=== PATIENT | female | born 1945 | race Caucasian/White ===

== ENCOUNTER → 2016-06-12 | Day surgery (SDC) | payer OTHER ==
[2016-06-04 11:35] VITALS: BMI 25.0
[~2016-06-12] VITALS: Ht 165.1 cm; Wt 70.5 kg
[~2016-06-12] MED LIST: AGG PO; CAPS0.1C6 TOP; CYM/30 PO; FLR/1 PO; KPP/1000 PO; LANS30CA12 PO; LEVO50TA6 PO; LIDOCAINE HCL 2% 2 ML VIAL (20MG/ML) ONE; MIDO5TAB PO; MULT-506 PO; ONDANSETRON INJ 2 MG/ML 2 ML VIAL IV PRN; PENT400T2 PO; PREG1CAP28 PO; PROPOFOL IV EMULSION 10 MG/ML 20 ML VIAL IV ONE; PRVC/40 PO; PSYL48.59 PO; [UNRECOGNIZED DRUG - CODE] PO
[2016-06-12 12:46] VITALS: Ht 165.1 cm; Wt 70.5 kg
--- NOTE | 2016-06-12 13:17 | Endo History and Physical ---
History & Physical Date of Service: Jun 12, 2016. Chief Complaint: Hx colon poylps Referring Physician: Dr. Chang History of Present Illness History of a serrated adenoma, for surveillance tolday. Past Surgical History Hx Cardiac Surgery: No Hx Internal Defibrillator: No Hx Pacemaker: No Hx Abdominal Surgery: Yes (APPY, COLON RESECTION, CURTIS) Hx of Implantable Prosthesis: No Hx Post-Op Nausea and Vomiting: No Hx Cancer Surgery: Yes (SKIN CANCER REMOVALS) Hx Thoracic Surgery: No Hx Orthopedic: No Hx Urinary Tract Surgery: No Family History None Social History Smoking Status: Never Smoker Hx Substance Use: No Hx Alcohol Use: No Allergies Coded Allergies: Atorvastatin (Verified Allergy, Unknown, ? UNSURE, 06/04/16) Carbamazepine (Verified Allergy, Unknown, CONFUSIONS, 06/04/16) Phenytoin (Verified Allergy, Unknown, RASH, 06/04/16) Uncoded Allergies: PEANUT PRODUCTS (Allergy, Unknown, TROUBLE BREATHING, 05/02/16) Current Medications Reported Home Medications Medications Dose Route/Sig Max Daily Dose Days Date Category Dose Instructions Capsaicin 0.1 % Cre 1 Appl TOP TID PRN 06/04/16 Reported Multivitamin (Multivitamins) Tab 1 Tab PO QPM 05/02/16 Reported Metamucil (Psyllium) 48.57 % Pow 1 Dose PO BID PRN 05/02/16 Reported Ixex-Y-Azbig 1000 (Vitamin E) 1,000 Unit Cap 1 Cap PO QAM 05/02/16 Reported Lyrica (Pregabalin) 75 Mg Cap 2 Cap PO BID 05/02/16 Reported Pravastatin Sodium (Pravastatin Sod) 40 Mg Tab 1 Tab PO HS 05/02/16 Reported Trental (Pentoxifylline) 400 Mg Tab 400 Mg PO TID 05/02/16 Reported Midodrine Hcl 5 Mg Tab 0.5 Tab PO TID 05/02/16 Reported Keppra (Levetiracetam) 1,000 Mg Tab 1.5 Tab PO BID 05/02/16 Reported Prevacid (Lansoprazole) 30 Mg Capcr 30 Mg PO QAM 05/02/16 Reported Florinef (Fludrocortisone Acetate) 0.1 Mg Tab 0.1 Mg PO QAM 05/02/16 Reported Cymbalta (Duloxetine HCl) 30 Mg Cap 1 Cap PO QAM 05/02/16 Reported Levothyroxine Sodium 50 Mcg Tab 1 Tab PO 6XWK 05/02/16 Reported DOES NOT TAKE MEDICATION ON SATURDAY Aggrenox 200MG/25MG (Aspirin-Dipyridamole 25MG/200MG) 1 Cap Cap 1 Cap PO BID 05/02/16 Reported Vital Signs Weight (Kilograms): 70.45 Height (Feet): 5 Height (Inches): 5 Date Time Temp Pulse Resp B/P Pulse Ox O2 Delivery O2 Flow Rate FiO2 06/12/16 13:08 36.4 75 20 106/53 97 Room Air Physical Exam General Appearance: no apparent distress Respiratory/Chest: Auscultation: deminished air movement Cardiovascular: Heart Auscultation: II/ WILVER Abdomen: Inspection & Palpation: soft Assessment and Plan Colonoscopy for evaluation of prior colonic polyps. Risks discussed to include bleeding, infection, perforation, pain, and missed lesions.
--- NOTE | 2016-06-12 13:47 | GI REPORT ---
Procedure Date: 06/12/2016 1:09 PM Procedure: Colonoscopy Indications: High risk colon cancer surveillance: Personal history of sessile serrated colon polyp (10 mm or greater in size) Medicines: Monitored Anesthesia Care Complications: No immediate complications. Estimated blood loss: Minimal. Estimated Blood Loss: Estimated blood loss was minimal. Procedure: Pre-Anesthesia Assessment: - Prior to the procedure, a History and Physical was performed, and patient medications, allergies and sensitivities were reviewed. The patient's tolerance of previous anesthesia was reviewed. - The risks and benefits of the procedure and the sedation options and risks were discussed with the patient. All questions were answered and informed consent was obtained. - Patient identification and proposed procedure were verified prior to the procedure by the physician, the nurse and the brand ambassadors promotional sales. The procedure was verified in the procedure room. - Pre-procedure physical examination revealed no contraindications to sedation. - ASA Grade Assessment: III - A patient with severe systemic disease. - After reviewing the risks and benefits, the patient was deemed in satisfactory condition to undergo the procedure. - The anesthesia plan was to use monitored anesthesia care (MAC). - Immediately prior to administration of medications, the patient was re-assessed for adequacy to receive sedatives. - The heart rate, respiratory rate, oxygen saturations, blood pressure, adequacy of pulmonary ventilation, and response to care were monitored throughout the procedure. - The physical status of the patient was re-assessed after the procedure. After I obtained informed consent, the scope was passed under direct vision. Throughout the procedure, the patient's blood pressure, pulse, and oxygen saturations were monitored continuously. The scope was introduced through the anus and advanced to the ileocolonic anastomosis. The colonoscopy was performed without difficulty. The patient tolerated the procedure well. The quality of the bowel preparation was good. Findings: The perianal and digital rectal examinations were normal. Pertinent negatives include normal sphincter tone. There was evidence of a prior end-to-side ileo-colonic anastomosis in the transverse colon. This was patent and was characterized by healthy appearing mucosa. The anastomosis was traversed. Two sessile polyps were found in the transverse colon. The polyps were 4 to 5 mm in size. These polyps were removed with a cold snare. Resection and retrieval were complete. Estimated blood loss was minimal. Three sessile polyps were found in the recto-sigmoid colon. The polyps were 3 to 5 mm in size. These polyps were removed with a cold snare. Resection and retrieval were complete. Estimated blood loss was minimal. Internal hemorrhoids were found during retroflexion. The hemorrhoids were mild. The exam was otherwise without abnormality. Impression: - Patent end-to-side ileo-colonic anastomosis, characterized by healthy appearing mucosa. - Two 4 to 5 mm polyps in the transverse colon, removed with a cold snare. Resected and retrieved. - Three 3 to 5 mm polyps at the recto-sigmoid colon, removed with a cold snare. Resected and retrieved. - Internal hemorrhoids. - The examination was otherwise normal. Recommendation: - Discharge patient to home (ambulatory). - Advance diet as tolerated today. - Await pathology results. - Repeat colonoscopy in 3 years for surveillance based on pathology results. - Return to GI office PRN. Carmen Khanna D.O. Carmen Khanna, 06/12/2016 1:47:39 PM This report has been signed electronically. Note Initiated On: 06/12/2016 1:09 PM I attest to the content of the Intraoperative Record and orders documented therein, exceptions below
--- NOTE | 2016-06-12 13:48 | Discharge Instructions ---
Endoscopy Patient Instructions Date / Procedure(s) Performed Jun 12, 2016. Colonoscopy Allergy Information Coded Allergies: Atorvastatin (Verified Allergy, Unknown, ? UNSURE, 06/04/16) Carbamazepine (Verified Allergy, Unknown, CONFUSIONS, 06/04/16) Phenytoin (Verified Allergy, Unknown, RASH, 06/04/16) Uncoded Allergies: PEANUT PRODUCTS (Allergy, Unknown, TROUBLE BREATHING, 05/02/16) Discharge Date / Findings Jun 12, 2016. 5 small colon polyps Internal hemorrhoids Medication Instructions Reported Home Medications Medications Dose Route/Sig Max Daily Dose Days Date Category Dose Instructions Capsaicin 0.1 % Cre 1 Appl TOP TID PRN 06/04/16 Reported Multivitamin (Multivitamins) Tab 1 Tab PO QPM 05/02/16 Reported Metamucil (Psyllium) 48.57 % Pow 1 Dose PO BID PRN 05/02/16 Reported Jgol-V-Jggsx 1000 (Vitamin E) 1,000 Unit Cap 1 Cap PO QAM 05/02/16 Reported Lyrica (Pregabalin) 75 Mg Cap 2 Cap PO BID 05/02/16 Reported Pravastatin Sodium (Pravastatin Sod) 40 Mg Tab 1 Tab PO HS 05/02/16 Reported Trental (Pentoxifylline) 400 Mg Tab 400 Mg PO TID 05/02/16 Reported Midodrine Hcl 5 Mg Tab 0.5 Tab PO TID 05/02/16 Reported Keppra (Levetiracetam) 1,000 Mg Tab 1.5 Tab PO BID 05/02/16 Reported Prevacid (Lansoprazole) 30 Mg Capcr 30 Mg PO QAM 05/02/16 Reported Florinef (Fludrocortisone Acetate) 0.1 Mg Tab 0.1 Mg PO QAM 05/02/16 Reported Cymbalta (Duloxetine HCl) 30 Mg Cap 1 Cap PO QAM 05/02/16 Reported Levothyroxine Sodium 50 Mcg Tab 1 Tab PO 6XWK 05/02/16 Reported DOES NOT TAKE MEDICATION ON SATURDAY Aggrenox 200MG/25MG (Aspirin-Dipyridamole 25MG/200MG) 1 Cap Cap 1 Cap PO BID 05/02/16 Reported Provider Instructions Activity Restrictions - No exercising or heavy lifting for 24 hours. - Do not drink alcohol the day of the procedure. - Do not drive a car or operate machinery until the day after the procedure. - Do not make any important decisions or sign important papers in 24 hours after the procedure. Following Day: - Return to full activity which may include returning to work/school. Diet Start your diet with liquids and light foods (jello, soup, juice, toast). Then eat your usual diet if not nauseated. Treatment For Common After Affects For mild abdominal pain, bloating, or excessive gas: - Rest - Eat lightly - Lie on right side Follow-Up Information Follow-up with Dr. Chang as scheduled Repeat colonoscopy in 3 years. Anesthesia Information What You Should Know You have had a procedure that required some medicine to reduce anxiety and discomfort. This treatment is called moderate sedation. After receiving the treatment, you may be sleepy, but you will be able to breathe on your own. The effects of the treatment may last for several hours. Follow these instructions along with Activity/Diet recommendations noted above: * Do NOT do anything where dizziness or clumsiness would be dangerous. * Rest quietly at home today, then you can be up and about tomorrow. * Have a responsible person stay with you the rest of today. * You may have had an I.V. today. If so, you may take the dressing off later today. Recommendations Call your doctor if: * Trouble breathing * Continuous vomiting for more than 24 hours * Temperature above 101 degrees * Severe abdominal pain or bloating * Pain not relieved by pain medicine ordered * There is increased drainage or redness from any incision * A large amount of rectal bleeding greater than 2-3 tablespoons. (If you had a polyp/s removed or have hemorrhoids, a small amount of blood - from the rectum is to be expected.) * You have any unanswered questions or concerns. IN THE EVENT OF A SERIOUS EMERGENCY, GO TO THE NEAREST EMERGENCY ROOM Your discharge instructions were prepared by provider Carmen Khanna. Patient Instructions Signature Page Sheylasofía Collado Patient (or Guardian) Signature/Date: I have read and understand the instructions given to me by my caregivers. Caregiver/RN/Doctor Signature/Date: The above-named patient and/or guardian has received patient instructions on this date. + Original Patient Signature Page (only) stays with chart. Please make copy for patient.
--- NOTE | 2016-06-12 14:24 | Anesthesiology Progress Note ---
Anesthesia Post Op Note Date & Time Jun 12, 2016 at 14:24 Vital Signs Pain Intensity: 0 Vital Signs Past 12 Hours Date Time Temp Pulse Resp B/P Pulse Ox O2 Delivery O2 Flow Rate FiO2 06/12/16 14:03 75 16 123/76 98 Room Air 06/12/16 13:48 75 16 98/58 98 Room Air 06/12/16 13:08 36.4 75 20 106/53 97 Room Air Notes Mental Status: alert / awake / arousable, participated in evaluation Pt Amnestic to Procedure: Yes Nausea / Vomiting: adequately controlled Pain: adequately controlled Airway Patency, RR, SpO2: stable & adequate BP & HR: stable & adequate Hydration State: stable & adequate Anesthetic Complications: no major complications apparent
[2016-06-12 14:35] VITALS: BP 140/84; PULSE 65; O2SAT 99
== END | disposition home or self-care (01) ==
LOC: C.GI 12:38
PROVIDERS: ATTEND Internal Medicine Gastroenterology
DX: Z12.11 Encounter for screening for malignant neoplasm of colon (principal); Z86.010 Personal history of colon polyps; D12.3 Benign neoplasm of transverse colon; K62.1 Rectal polyp; K64.8 Other hemorrhoids; Z98.0 Intestinal bypass and anastomosis status; Z90.49 Acquired absence of other specified parts of digestive tract; Z88.8 Allergy status to other drugs, medicaments and biological substances; Z98.890 Other specified postprocedural states